=== PATIENT | male | born 1965 | race Caucasian/White ===

== ENCOUNTER 2018-10-09 10:07 | Inpatient (IN) ==
--- NOTE | 2018-10-09 10:43 | PROVIDER DOCUMENTATION ---
HPI-Musculoskeletal Pain/Inj - GENERAL Chief Complaint: Fall Stated Complaint: FALL/HIP INJ Time Seen by Provider: 10/09/18 10:31 Source: patient, family - HX OF PRESENT ILLNESS-MUSKULOSKELTAL Nature of Presenting Problem: 53yom present to ER with c/o left hip, bilateral wrist, and head pain. Pt reports he was in the backseat floorboard of a van when he fell out of it landing on the left hip and bilateral wrist. Reports hitting head but denies LOC. Pt A&Ox3. Female visitor at bedside. Quality of Pain: reports: aching, throbbing Onset/Duration: just prior to arrival Modifying Factors: improves with: rest. worse with: movement, palpation - FALL INJURY Location of Pain/Injury: reports: head, other (left hip, bilateral wrist) Pain Radiation: reports: no radiation Symptoms prior to fall:: reports: none Loss of Consciousness: no loss of consciousness Injury Associated Symptoms: reports: headaches, trouble walking. denies: chest pain, dizziness, nausea, shortness of breath, sensory/motor loss, vomiting, weakness - HIP/PELVIS PAIN/INJURY Hip Pain Location: reports: hip (L) Pain Radiation: reports: no radiation Context / Method of Injury: reports: fall Associated Symptoms: reports: denies symptoms Review of Systems - Adult - REVIEW OF SYSTEMS - ADULT Constitutional: reports: no symptoms reported Eyes: reports: no symptoms reported Ears, Nose, Mouth & Throat: reports: no symptoms reported Cardiovascular: reports: no symptoms reported. denies: chest pain, orthopnea, palpitations, syncope Respiratory: reports: no symptoms reported. denies: shortness of breath, wheezing Gastrointestinal: reports: no symptoms reported Genitourinary: reports: no symptoms reported Musculoskeletal: reports: see HPI, other (left hip, bilateral wrist) Integumentary: reports: no symptoms reported Neurological: reports: no symptoms reported Psychiatric: reports: no symptoms reported Endocrine: reports: no symptoms reported Hematologic/Lymphatic: reports: no symptoms reported Allergic/Immunologic: reports: no symptoms reported All Other Systems: Reviewed and Negative Past History - Adult - PAST MEDICAL HISTORY-ADULT Review of Records: reports: Old Records Reviewed, Nursing Assessment Review, Medications Reviewed Major Childhood Illnesses: reports: denies history Cardiovascular: reports: denies history Respiratory: reports: COPD Gastrointestinal: reports: denies history Obstetrical/Gynecological: reports: denies history Genitourinary: reports: denies history Musculoskeletal: reports: denies history Neurological: reports: denies history Endocrine/Immune: reports: denies history Other Conditions: reports: denies history - PRIOR SURGERIES/PROCEDURES Surgical/Procedure History: reports: hernia repair - IMMUNIZATION STATUS Childhood Immunizations: See Nurse Assessment Flu Vaccine: See Nurse Assessment - FAMILY HISTORY Family History: reviewed, not pertinent Physical Exam-Injury Related - Physical Exam-Injury Related Initial Vital Signs Reviewed: Yes General Appearance: appears well, alert, no apparent distress Eyes: pink conjunctivae Head, Ears, Nose, Mouth & Throat: moist mucous membranes Neck: full range of motion, supple, normal inspection. negative: C-spine tenderness, subcutaneous emphysema, trachial deviation, vertebral point tenderness Respiratory: chest non-tender, lungs clear, normal breath sounds, no pleuratic chest pain, no respiratory distress, no accessory muscle use Cardiovascular: regular rate, rhythm Peripheral Pulses: dorsalis-pedis (R): 2+, dorsalis-pedis (L): 2+ Abdominal Exam: normal bowel sounds, non tender, soft Extremity: no pedal edema, no calf tenderness, normal capillary refill, swelling (left hip), tenderness (left hip, bilateral wrist, small abrasion to right wrist). negative: normal gait, deformity, erythema, pulse deficit, slow capillary refill Integumentary: normal color, warm/dry Neurologic: grossly normal Psych/Mental Status: oriented x 3 - Glascow Coma Score Best Eye Response (Bartlett): (4) open spontaneously Best Verbal Response (Bartlett): (5) oriented Best Motor Response (Bartlett): (6) obeys commands Progress - PLAN OF CARE/RESULTS Progress/Plan/Lab Results: Vital Signs - 8 hr 10/09/18 10:16 Temperature 97.5 F L Pulse Rate 62 Respiratory Rate 18 Blood Pressure 109/63 Orders Category Date Time Status CT HEAD/C-SPINE W/O CONTRAST [CT] Stat Exams 10/09/18 10:[address] PELVIS W/O CONTRAST [CT] Stat Exams 10/09/18 11:41 Completed HAND COMPLETE LEFT [RAD] Stat Exams 10/09/18 10:35 Completed HAND COMPLETE RIGHT [RAD] Stat Exams 10/09/18 10:35 Completed Hydrocodone/APAP 7.5 mg/325 mg [[place]-7.5] Med 10/09/18 11:33 Discontinued 1 each PO NOW ONE - REASSESSMENT Reassessment #1 Time Reassessed: 12:51 (Pt lying in bed. States pain has improved. Explained results and plan to call orthopedic) - XRAY 1 XRAY: Right XRAY Study: Hand (No acute abnormality identified) 2 XRAY: Left XRAY Study: Hand (No acute abnormality identified) - CT/MRI 1 CT Study: Cervical Spine, Head Impression: Normal, See EMR Report (The ventricles and sulci are normal in size and contour. No intracranial mass or hemorrhage. The skull is intact. The sinuses, mastoids, and middle ears are clear. Cervical spine: Alignment is anatomic. Vertebral body heights and intervertebral disc spaces are preserved. Neural foramen are patent. Soft tissues are clear. IMPRESSION: Negative exam. This exam was performed using automated exposure control, adjustment of mA or kV according to patient size, and/or use of iterative reconstruction technique Electronically signed by Stefano Padilla 10/09/2018 12:23 PM) 2 CT Study: Pelvis Impression: Abnormal (There is nondisplaced subcapital left hip fracture at the femoral neck. No dislocations. Soft tissues are clear. No other fractures. IMPRESSION: Acute nondisplaced subcapital left hip fracture. This exam was performed using automated exposure control, adjustment of mA or kV according to patient size, and/or use of iterative reconstruction technique Electronically signed by Stefano Padilla 10/09/2018 12:34 PM) - CONSULTS/PCP/HOSPITALIST Notification #1 *Consult/PCP/Hospitalist*: [facility] Time Discussed: 13:13 (Hip fx) Reason/Comments: admit to hospitalist, NPO after midnight Consult Disposition: Admit #2 Consult: Dr Rosado Time Discussed: 13:21 (Dr Rosado in ER, discussed pt) Consult Disposition: Admit Departure - Departure Date of Disposition Decision: 10/09/18 Time of Disposition Decision: 13:18 DIAGNOSIS: Hip fracture Qualifiers: Encounter type: initial encounter Fracture type: closed Laterality: left Qualified Code(s): S72.002A - Fracture of unspecified part of neck of left femur , initial encounter for closed fracture Disposition: [place] [id number] Certified Medical Emergency: Emergent Condition: Fair Referrals and Follow-Ups: None,PCP [Primary Care Provider] - - Critical Care Note This patient required my direct & personal management of CC.: No Attestation - Physician/ MAUREEN Attestation Patient care was provided by Advanced Practice Provider:: Yes Advanced Practice Provider:: Alexa Erickson Advanced Practice Provider documentation review:: The Mid-level provider documentation, treatment plan and medical decision making was reviewed by the physician who agrees with all treatment and medical decision making by the MLP. The physician spent face to face time with patient:: No Advanced Practice Provider documentation review:: Supervising physician onsite and consulted in the evaluation and care of this patient. The physician did not have a face to face encounter with the patient.
[2018-10-09] MEDS ORDERED: NORCO-7.5 PO ONE (11:33)
--- NOTE | 2018-10-09 12:26 | Diag Imaging Result Doc PS360 ---
CT HEAD/C-SPINE W/O CONTRAST - 10/09/2018 INDICATION: fall, hit head COMPARISON: None FINDINGS: Head CT: The ventricles and sulci are normal in size and contour. No intracranial mass or hemorrhage. The skull is intact. The sinuses, mastoids, and middle ears are clear. Cervical spine: Alignment is anatomic. Vertebral body heights and intervertebral disc spaces are preserved. Neural foramen are patent. Soft tissues are clear. IMPRESSION: Negative exam. This exam was performed using automated exposure control, adjustment of mA or kV according to patient size, and/or use of iterative reconstruction technique Electronically signed by Stefano Padilla 10/09/2018 12:23 PM
--- NOTE | 2018-10-09 12:36 | Diag Imaging Result Doc PS360 ---
CT PELVIS W/O CONTRAST - 10/09/2018 INDICATION: fall injury COMPARISON: None FINDINGS: There is nondisplaced subcapital left hip fracture at the femoral neck. No dislocations. Soft tissues are clear. No other fractures. IMPRESSION: Acute nondisplaced subcapital left hip fracture. This exam was performed using automated exposure control, adjustment of mA or kV according to patient size, and/or use of iterative reconstruction technique Electronically signed by Stefano Padilla 10/09/2018 12:34 PM
--- NOTE | 2018-10-09 13:21 | Diag Imaging Result Doc PS360 ---
HAND COMPLETE LEFT - 10/09/2018 INDICATION: bilateral wrist pain TECHNIQUE: Three views COMPARISON: None FINDINGS: Bones are intact and normally aligned. Joint spaces and soft tissues are clear. IMPRESSION: Negative exam. Electronically signed by Stefano Padilla 10/09/2018 1:19 PM
--- NOTE | 2018-10-09 13:22 | Diag Imaging Result Doc PS360 ---
HAND COMPLETE RIGHT - 10/09/2018 INDICATION: bilateral wrist pain TECHNIQUE: Three views COMPARISON: None FINDINGS: Bones are intact and normally aligned. Joint spaces and soft tissues are clear. IMPRESSION: Negative exam. Electronically signed by Stefano Padilla 10/09/2018 1:19 PM
[2018-10-09] MEDS ORDERED: DILAUDID IV PRN (13:46)
[2018-10-09] MEDS: LOVENOX SUBQ SCH (14:00)
[2018-10-09 15:13] LABS: INR 1.04; PROTIME 14.1 Seconds (11.0-16.0)
[2018-10-09 15:18] LABS: AGAP 12; ALBUMIN 3.5 g/dL (3.5-5.0); ALKALINE PHOSPHATASE 77 U/L (32-122); BUN 4 mg/dL (8-22); CALCIUM 8.8 mg/dL (8.8-10.2); CHLORIDE 104 mmol/L (98-107); COSMO 276; CREATININE 0.6 mg/dL (0.7-1.2); ESTIMATED GFR > 60; GLUCOSE 132 mg/dL (70-104); GOT 15 U/L (10-34); GPT 12 U/L (10-44); POTASSIUM 3.5 mmol/L (3.5-5.1); SODIUM 139 mmol/L (136-145); TCO2 23 mmol/L (25-35); TOTAL PROTEIN 6.4 g/dL (6.3-8.3)
[2018-10-09 15:21] LABS: BASO# 0.02 X1000 (0.0-0.2); BASO% 0.1 % (0.0-0.8); EOS# 0.02 X1000 (0.0-0.7); EOS% 0.1 % (0.0-10.0); HEMATOCRIT 40.5 % (42.0-52.0); HEMOGLOBIN 13.8 g/dL (14.0-18.0); IMM GRAN# 0.05 X1000 (0.0-0.04); IMM GRAN% 0.2 % (0.0-0.5); LYMPH# 1.64 X1000 (1.2-3.4); LYMPH% 7.4 % (20.5-51.1); MCH 30.1 PG (27-31); MCHC 34.1 g/dL (33-37); MCV 88.2 FL (81-99); MONO# 1.02 X1000 (0.11-0.59); MONO% 4.6 % (1.7-9.3); MPV 9.3 FL (7.4-10.4); NEUT# 19.38 X1000 (1.4-6.5); NEUT% 87.6 % (42.2-75.2); PLT 372 X1000 (130-400); RBC 4.59 XMIL (4.7-6.1); RDW 13.6 % (11.5-14.5); WBC 22.13 X1000 (4.8-10.8)
[2018-10-09 15:39] LABS: LYMPHS 6 % (21-51); MONO 5 % (1-9); SEGS 89 % (42-75)
[2018-10-09 15:40] LABS: ANISOCYTOSIS 1+
[2018-10-09] MEDS ORDERED: MORPHINE IV ONE (15:52)
--- NOTE | 2018-10-09 16:35 | HISTORY AND PHYSICAL ---
CHIEF COMPLAINT: Fall and hip pain. HISTORY OF PRESENT ILLNESS: Patient is a 53-year-old male, who is very pleasant to talk with. States that he "was standing on a vehicle and was attempting to tie down some pipe.' States when he reached up and grabbed the strap, it broke. He fell, landing on his left hip and bilateral hands and wrists. Notes that he has pain on his bilateral hands and wrists, as well as his left hip. Denies hitting his head. Denies any loss of consciousness. REVIEW OF SYSTEMS: Patient denies any chest pain, palpitations. Denies any focalized numbness, tingling, weakness in his extremities. Denies any dysuria, urinary frequency. Denies constipation, melena, hematochezia. Denies prior pain in his hip. PAST MEDICAL HISTORY: Significant only for COPD and a hernia repair some years ago. MEDICATIONS: None. ALLERGIES: None. FAMILY HISTORY: Noncontributory. PHYSICAL EXAMINATION: VITAL SIGNS: Temperature 97.5, pulse 62, respiratory 18, BP 109/63. GENERAL: Patient is awake, alert, currently he is in no respiratory distress. He is very pleasant to talk with, although he is in obvious pain secondary to his hip. HEENT: Normocephalic. NECK: Supple. CV: Regular rate. No murmurs. CHEST: Clear, nonlabored. No wheezing. No coughing. Normal breath sounds. ABDOMEN: Soft, nondistended, nontender. EXTREMITIES: Good pulses bilaterally. He moves upper extremities well. His right extremity is flexed. His left extremity is noted to have swelling over the hip and tenderness. He does not move voluntarily. He is able to move his foot, although painful. NEUROLOGIC: He is awake, alert, oriented x3. LABS: CBC CMP pending. X-RAYS: CT of the hip demonstrates an acute nondisplaced subcapital left hip fracture. ASSESSMENT: 1. Acute nondisplaced subcapital left hip fracture secondary to fall. 2. Chronic obstructive pulmonary disease. 3. Acute pain and pain control. PLAN: We will admit patient to the hospital. Add Dilaudid for acute pain control. Continue IV fluids. We will place on Lovenox overnight, as he will be immobile. We will allow to eat and make n.p.o. after midnight. Surgery will see,and evaluate and determine the best course for his hip repair. cc: Win Gillespie MD
--- NOTE | 2018-10-09 17:01 | Diag Imaging Result Doc PS360 ---
PELVIS - 10/09/2018 INDICATION: Hip fracture TECHNIQUE: COMPARISON: None FINDINGS: There is a nondisplaced subcapital left femoral neck fracture. IMPRESSION: Nondisplaced subcapital left hip fracture. Electronically signed by Stefano Padilla 10/09/2018 4:58 PM
[2018-10-09] MEDS ORDERED: PREVNAR 13 IM ONE (17:06)
[2018-10-09] MEDS ORDERED: PNEUMOVAX 23 IM ONE (17:15)
--- NOTE | 2018-10-09 17:22 | CONSULTATION ---
DATE OF CONSULTATION: 10/09/2018 CHIEF COMPLAINT: Left hip pain. HISTORY OF PRESENT ILLNESS: Mr. Kerr 53-year-old male who unfortunately was trying to tie down some pipe on his van and fell and landed on his hip and a lot of hip pain, could not bear weight. Came to the ER, they diagnosed with a hip fracture and he was admitted under Dr. Gillespie. Most of his pain is in the left hip and radiates down to the knee, is worse with any movement. PAST MEDICAL HISTORY: COPD, hernia repair. PAST SURGICAL HISTORY: Hernia repair. MEDICATIONS: None. ALLERGIES: No known drug allergies. FAMILY HISTORY: Noncontributory. SOCIAL HISTORY: He does smoke. REVIEW OF SYSTEMS: Positive for this left hip pain. All other systems are essentially negative. PHYSICAL EXAMINATION: General: Well-developed, well-nourished male. He is in mild distress. Head and Neck: Normocephalic, atraumatic. Respirations: Nonlabored breathing. Cardiovascular: Regular rate. Abdomen: Is not distended. Extremities: Left lower extremity exam, he has tenderness to palpation at the hip. He has good dorsiflexion, plantar flexion of the ankle and toes, good sensation to light touch to the toes. No tenderness to palpation to the right lower extremity or bilateral upper extremities. IMAGING: CT shows a nondisplaced subcapital femoral neck fracture. ASSESSMENT: Left nondisplaced hip fracture. PLAN: I discussed with Mr. Kerr and his about the hip and order just a plain film x-ray of his pelvis and if everything still nondisplaced then discussed with him about performing left closed reduction, percutaneous pinning the left hip. We will plan on doing that in the morning. He will be n.p.o. after midnight tonight. I went over with him the procedure, risks, benefits, potential complications. Risks include but are not limited to infection, wound healing problems, damage to nerves, arteries, veins, numbness, malunion, nonunion, hardware related issues, continued pain, DVT, and anesthesia related risks. After discussing these with the patient, he expressed understanding wished to proceed. Like I said, we will plan on getting this done tomorrow. cc: Clive George MD
[2018-10-09] MEDS: OXY IR PO PRN (17:30)
[2018-10-09] MEDS ORDERED: SODIUM CHLORIDE 0.9% INJ SCH (18:45)
[2018-10-09] MEDS: DILAUDID IV PRN (19:21)
--- NOTE | 2018-10-09 19:40 | Diag Imaging Result Doc PS360 ---
CHEST-PORTABLE - 10/09/2018 INDICATION: dyspnea COMPARISON: 01/16/2016 FINDINGS: Lungs are hyperexpanded compatible with COPD. No focal infiltrates, pneumothorax, or pleural effusion. Heart size is normal. IMPRESSION: COPD. Electronically signed by Stefano Padilla 10/09/2018 7:38 PM
[2018-10-09] MEDS: ZOFRAN IV PRN (20:20)
[2018-10-09] MEDS: NS 1,000 ML IV SCH (20:20)
[2018-10-09] MEDS: NICODERM PATCH TD SCH (20:21)
[2018-10-10] MEDS: ZOFRAN IV PRN ×2 (00:47→04:38)
[2018-10-10] MEDS: DILAUDID IV PRN ×3 (00:47→08:39)
[2018-10-10 01:08] LABS: URINE SOURCE CLEAN CATCH
[2018-10-10 01:11] LABS: BILIRUBIN URINE NEGATIVE (NEGATIVE); BLOOD URINE NEGATIVE (NEGATIVE); COLOR YELLOW; GLUCOSE URINE NEGATIVE (NEGATIVE); KETONE URINE 60 mg/dL (NEGATIVE); LEUKOCYTES URINE NEGATIVE (NEGATIVE); NITRITE URINE NEGATIVE (NEGATIVE); PROTEIN URINE 30 mg/dL (NEGATIVE); SP GRAVITY URINE 1.023; TURBIDITY URINE HAZY (CLEAR); UROBILINOGEN URINE NORMAL (NORMAL)
[2018-10-10 01:22] LABS: UR EPITHELIAL CELLS <10 /HPF (<10); URINE BACTERIA NEGATIVE /HPF; URINE RBC <10 /HPF (<10); URINE WBC <10 /HPF (<10)
[2018-10-10 01:29] LABS: URINE CASTS NONE SEEN; URINE CRYSTALS CA OXALATE PRESENT; URINE YEAST NONE SEEN
[2018-10-10 06:28] LABS: HEMATOCRIT 37.3 % (42.0-52.0); HEMOGLOBIN 12.8 g/dL (14.0-18.0); MCH 30.6 PG (27-31); MCHC 34.3 g/dL (33-37); MCV 89.2 FL (81-99); MPV 9.6 FL (7.4-10.4); RBC 4.18 XMIL (4.7-6.1); RDW 13.5 % (11.5-14.5); WBC 15.84 X1000 (4.8-10.8)
[2018-10-10] MEDS: PROTONIX IV SCH (06:33)
[2018-10-10 06:44] LABS: AGAP 13; ALB/GLOB RATIO 1.5; ALBUMIN 3.6 g/dL (3.5-5.0); ALKALINE PHOSPHATASE 71 U/L (32-122); BUN 6 mg/dL (8-22); CALCIUM 8.5 mg/dL (8.8-10.2); CHLORIDE 103 mmol/L (98-107); COSMO 278; CREATININE 0.6 mg/dL (0.7-1.2); ESTIMATED GFR > 60; GLUCOSE 123 mg/dL (70-104); GOT 13 U/L (10-34); GPT 11 U/L (10-44); MAGNESIUM 1.3 mg/dL (1.5-2.7); POTASSIUM 3.4 mmol/L (3.5-5.1); SODIUM 140 mmol/L (136-145); TCO2 24 mmol/L (25-35); TOTAL BILIRUBIN 1.02 mg/dL (0.20-1.00)
[2018-10-10 06:46] LABS: URINE SOURCE CATH
[2018-10-10 06:48] LABS: BILIRUBIN URINE NEGATIVE (NEGATIVE); BLOOD URINE NEGATIVE (NEGATIVE); COLOR YELLOW; GLUCOSE URINE NEGATIVE (NEGATIVE); KETONE URINE 60 mg/dL (NEGATIVE); LEUKOCYTES URINE NEGATIVE (NEGATIVE); NITRITE URINE NEGATIVE (NEGATIVE); PROTEIN URINE TRACE mg/dL (NEGATIVE); SP GRAVITY URINE 1.019; TURBIDITY URINE CLEAR (CLEAR); UROBILINOGEN URINE NORMAL (NORMAL)
[2018-10-10 06:49] LABS: URINE BACTERIA NEGATIVE /HPF; URINE RBC <10 /HPF (<10); URINE WBC <10 /HPF (<10)
[2018-10-10 06:56] LABS: UR EPITHELIAL CELLS <10 /HPF (<10)
[2018-10-10] MEDS ORDERED: KEFZOL 2 GM/D5W 2 GM/50 ML IVPB IV ONE (08:03)
--- NOTE | 2018-10-10 08:06 | PROGRESS NOTE ---
DATE: 10/10/2018 SUBJECTIVE: Mr. Kerr is lying in bed this morning. Still in pain from his left hip. He said he had a pretty rough night overall. OBJECTIVE: On left lower extremity exam, he still has tenderness to palpation of the left hip. Left hip was marked out as the correct surgical site. He is still neurovascularly intact to the left lower extremity. ASSESSMENT: Left nondisplaced femoral neck fracture. PLAN: Will plan on closed reduction percutaneous pinning of the left hip today. Mr. Kerr is n.p.o. now. Will plan on getting this done today. cc: Clive George MD
[2018-10-10] MEDS: NS 1,000 ML IV SCH (08:27)
[2018-10-10] MEDS ORDERED: MAGNESIUM SULFATE 2 GM/S.W.I. 2 GM/50 ML IVPB IV ONE (09:02)
[2018-10-10] MEDS ORDERED: XYLOCAINE-MPF 2% ONE (09:08)
[2018-10-10] MEDS ORDERED: ROBINUL ONE (09:08)
[2018-10-10] MEDS ORDERED: FENTANYL ONE (09:09)
[2018-10-10] MEDS ORDERED: DIPRIVAN 1% ONE (09:17)
[2018-10-10] MEDS ORDERED: KEFZOL 1 GM/D5W 1 GM/50 ML IVPB ONE (10:15)
[2018-10-10] MEDS ORDERED: ZOFRAN ONE (11:18)
[2018-10-10] MEDS ORDERED: DEMEROL ONE (11:22)
[2018-10-10] MEDS ORDERED: OFIRMEV 1000 MG/ISOTONIC SOLN 1,000 MG/100 ML BOTTLE ONE (11:24)
[2018-10-10] MEDS ORDERED: SALINE LOCK IV FLUID XX ONE (11:40)
[2018-10-10] MEDS: MORPHINE ONE ×3 (12:19→12:28)
[2018-10-10] MEDS: PHENERGAN ONE ×3 (12:25→12:45)
[2018-10-10] MEDS: DILAUDID ONE ×2 (12:35→12:39)
[2018-10-10] MEDS: LOVENOX SUBQ SCH (13:48)
--- NOTE | 2018-10-10 13:51 | OPERATIVE NOTE ---
PROCEDURE DATE: 10/10/2018 PREOPERATIVE DIAGNOSIS: Left femoral neck fracture nondisplaced. POSTOP DIAGNOSIS: Left femoral neck fracture nondisplaced. PROCEDURE: Left closed reduction, percutaneous pinning hip. SURGEON: Dr. Clive George. ELECTRONEURODIAGNOSTIC TECHNOLOGIST: None. ANESTHESIA: General with LMA. BLOOD LOSS: 50 mL. IMPLANTS: Synthes 7.3 mm cannulated screws x3. DISPOSITION: To PACU, hemodynamically stable. INDICATION FOR PROCEDURE: Mr. Kerr is a 53-year-old male who fell and broke his hip yesterday. He was admitted, made n.p.o. after midnight. We discussed with him about surgical intervention and they expressed understanding and wished to proceed. DESCRIPTION OF PROCEDURE: Mr. Kerr was identified in the preoperative holding area. The left hip was marked as correct surgical site. He was then wheeled to the operating room, placed supine on the operating table. All bony prominences well padded. He was induced under general anesthesia. LMA was placed. He was placed on the traction bed. Fluoroscopic imaging was used throughout the case as well. Left lower extremity was then prepped with chlorhexidine, gluconate scrub and then ChloraPrep and draped in normal sterile fashion. Surgical pause was performed. We identified the correct patient, correct side, and the correct procedure. Preop antibiotics were given. AP and lateral views were obtained. The lateral view actually looked great. The AP view, you could see there was just a little bit of gap and so I took off some of the traction and that actually closed down the calcar really well and then performed our closed reduction. I then got my guide wires in position. We did inverted triangle and felt we had good position of all the guidewires AP and lateral views. I then drilled and placed our screws in. Actually had good purchase on all the screws especially that inferior screw and that actually helped closed that little bit of a fracture line down at the calcar. All the guidewires were then removed. AP and lateral view showed we had good position of the fracture, good reduction and good position of all our hardware. I then closed everything in a layered fashion, 0 Vicryl for the deep layer, 2-0 Vicryl for the subcutaneous and gómez on the skin. Adaptic, 4 x 4s, island dressing was applied. The patient was then wheeled from general anesthesia, moved to his own bed and taken to PACU in stable condition. Postoperatively, he will be touchdown weightbearing left lower extremity. We will continue to follow. cc: Clive George MD
[2018-10-10] MEDS: POTASSIUM CHLORIDE 20 MEQ/SWI 20 MEQ/100 ML IVPB IV SCH ×2 (14:43→18:02)
[2018-10-10] MEDS: MORPHINE IV PRN ×2 (18:03→20:07)
--- NOTE | 2018-10-10 18:17 | PROGRESS NOTE ---
DATE: 10/10/2018 SUBJECTIVE: The patient is resting comfortably in bed no acute events. OBJECTIVE: Vital signs: Temperature 98.6 degrees, blood pressure 118/53, heart rate 60, respirations 18, O2 saturation 95% on room air. General: This is a elderly male lying in bed in no acute distress. Heart: S1, S2 normal, regular rate and rhythm. Lungs: Clear to auscultation bilaterally. Abdomen: Positive bowel sounds. Soft, nontender, nondistended. Extremities: No edema, no cyanosis. Neuro: The patient is alert and oriented x3. LABS: Sodium 140, potassium 3.4, chloride 103, CO2 24, BUN 6, creatinine 0.6, glucose 123, magnesium 1.3, calcium 8.5, total bilirubin 1, white blood cell count 15, hemoglobin 12, hematocrit 37, platelets 341,000. ASSESSMENT AND PLAN: 1. Status post closed reduction of the left femoral neck fracture. Management as per Orthopedic Surgery. 2. Leukocytosis. No obvious source of infection has been found, will continue to monitor the white count closely. 3. Tobacco dependence. Continue with the NicoDerm patch. 4. Gastrointestinal prophylaxis. Continue on Protonix. 5. Deep vein thrombosis prophylaxis. Continue on Lovenox. cc: Lizzie Calix MD
[2018-10-10] MEDS: KEFZOL 1 GM/D5W 1 GM/50 ML IVPB IV SCH (19:39)
[2018-10-10] MEDS: NICODERM PATCH TD SCH (20:07)
[2018-10-10] MEDS: COLACE PO SCH (20:08)
[2018-10-10] MEDS: PERIDEX MT SCH (20:08)
[2018-10-11] MEDS: MORPHINE IV PRN ×5 (01:11→14:45)
[2018-10-11] MEDS: KEFZOL 1 GM/D5W 1 GM/50 ML IVPB IV SCH ×2 (03:26→11:07)
[2018-10-11] MEDS: PROTONIX IV SCH (06:01)
[2018-10-11 06:20] LABS: HEMATOCRIT 36.3 % (42.0-52.0); HEMOGLOBIN 12.4 g/dL (14.0-18.0); MCH 30.8 PG (27-31); MCHC 34.2 g/dL (33-37); MCV 90.1 FL (81-99); MPV 9.6 FL (7.4-10.4); RBC 4.03 XMIL (4.7-6.1); RDW 13.5 % (11.5-14.5); WBC 13.78 X1000 (4.8-10.8)
[2018-10-11 06:46] LABS: AGAP 12; BUN 3 mg/dL (8-22); CALCIUM 8.4 mg/dL (8.8-10.2); CHLORIDE 102 mmol/L (98-107); COSMO 269; CREATININE 0.5 mg/dL (0.7-1.2); ESTIMATED GFR > 60; GLUCOSE 107 mg/dL (70-104); POTASSIUM 3.9 mmol/L (3.5-5.1); SODIUM 136 mmol/L (136-145); TCO2 22 mmol/L (25-35)
--- NOTE | 2018-10-11 06:57 | PROGRESS NOTE ---
DATE: 10/11/2018 SUBJECTIVE: Mr. Kerr is feeling a lot better this morning then was yesterday before surgery. He feels like his pain is better. OBJECTIVE: On left lower extremity exam, the dressing is clean, dry, and intact. He remains neurovascularly intact to the left lower extremity. ASSESSMENT: Status post left closed reduction and percutaneous pinning of hip fracture. PLAN: Mr. Kerr is doing well. He is touchdown weightbearing to the left lower extremity. He will start working with physical therapy today and tax services specialist will help with discharge planning. cc: Clive George MD
--- NOTE | 2018-10-11 07:16 | EKG Report ---
Test Performed on : 10/09/2018 8:12:06 PM Test Reason : preop Blood Pressure : / mmHG Vent. Rate : 058 BPM Atrial Rate : 058 BPM P-R Int : 136 ms QRS Dur : 080 ms QT Int : 438 ms P-R-T Axes : 074 085 035 degrees QTc Int : 429 ms Sinus bradycardia. Nonspecific ST abnormality Abnormal ECG No previous ECGs available Baseline sway limits ST segment review. Confirmed by Mauricio PARDO, Jorge Polk ([id number]) on 10/11/2018 8:46:35 AM
[2018-10-11] MEDS: OXY IR PO PRN ×3 (09:24→20:47)
[2018-10-11] MEDS: FERROUS SULFATE PO SCH (09:24)
[2018-10-11] MEDS: PERIDEX MT SCH ×2 (09:24→20:47)
[2018-10-11] MEDS: LOVENOX SUBQ SCH (14:45)
--- NOTE | 2018-10-11 15:44 | Diag Imaging Result Doc PS360 ---
EXAM: HIP 1 VIEW LEFT INDICATION: pain TECHNIQUE: One view COMPARISON: 10/09/2018 FINDINGS: There has been interval ORIF for the known fracture at the left femoral neck. The fracture is aligned in anatomic position. Three lag screws are now in place. No other fracture is identified. The hip joint spaces preserved. There are a few skin gómez at the lateral aspect hip. IMPRESSION: Postsurgical changes related to recent interval ORIF. Essentially unremarkable, otherwise. Electronically signed by Chucky Theodore 10/11/2018 3:42 PM
--- NOTE | 2018-10-11 17:07 | PROGRESS NOTE ---
DATE: 10/11/2018 SUBJECTIVE: The patient is resting comfortably in bed. No acute events noted overnight. OBJECTIVE: Vital Signs: Temperature, 99.5, blood pressure 122/75, heart rate 65, respirations 16, O2 saturation 96% on room air. General: This is an elderly male lying in bed in no acute distress. Heart: S1, S2 normal. Regular rate and rhythm. Lungs: Clear to auscultation bilaterally. Abdomen: Positive bowel sounds. Soft, nontender, nondistended. Extremities: No edema. No cyanosis. Neurologic: The patient is alert and oriented x3. LABORATORY DATA: White blood cell count 13, hemoglobin 12, hematocrit 36, platelets 323,000. Sodium 136, potassium 3.9, chloride 102, CO2 22, BUN 3, creatinine 0.5, glucose 107, calcium 8.4. ASSESSMENT AND PLAN: 1. Status post closed reduction of the left femoral neck fracture. Management as per Orthopedic Surgery. 2. Leukocytosis. Improved. 3. Tobacco dependence. The patient has been counseled about smoking cessation. 4. Gastrointestinal prophylaxis. Continue on Protonix. 5. Deep vein thrombosis prophylaxis. Continue on Lovenox. cc: Lizzie Calix MD
[2018-10-11] MEDS: NICODERM PATCH TD SCH (20:46)
[2018-10-11] MEDS: COLACE PO SCH (20:47)
[2018-10-12] MEDS: OXY IR PO PRN ×3 (02:42→21:54)
[2018-10-12] MEDS ORDERED: AYR NASAL SPRAY NAS PRN (03:10)
[2018-10-12 05:39] LABS: BASO# 0.02 X1000 (0.0-0.2); BASO% 0.2 % (0.0-0.8); EOS# 0.11 X1000 (0.0-0.7); EOS% 0.9 % (0.0-10.0); HEMATOCRIT 39.6 % (42.0-52.0); HEMOGLOBIN 13.4 g/dL (14.0-18.0); IMM GRAN# 0.02 X1000 (0.0-0.04); IMM GRAN% 0.2 % (0.0-0.5); LYMPH# 1.56 X1000 (1.2-3.4); LYMPH% 12.4 % (20.5-51.1); MCHC 33.8 g/dL (33-37); MCV 88.6 FL (81-99); MONO% 7.1 % (1.7-9.3); MPV 9.2 FL (7.4-10.4); NEUT# 10.02 X1000 (1.4-6.5); NEUT% 79.2 % (42.2-75.2); PLT 345 X1000 (130-400); RBC 4.47 XMIL (4.7-6.1); RDW 13.1 % (11.5-14.5); WBC 12.63 X1000 (4.8-10.8)
[2018-10-12 06:06] LABS: AGAP 10; BUN 4 mg/dL (8-22); CALCIUM 8.4 mg/dL (8.8-10.2); CHLORIDE 98 mmol/L (98-107); COSMO 272; CREATININE 0.6 mg/dL (0.7-1.2); ESTIMATED GFR > 60; GLUCOSE 115 mg/dL (70-104); POTASSIUM 4.1 mmol/L (3.5-5.1); SODIUM 137 mmol/L (136-145); TCO2 29 mmol/L (25-35)
[2018-10-12] MEDS: PROTONIX IV SCH (06:34)
--- NOTE | 2018-10-12 07:20 | PROGRESS NOTE ---
DATE: 10/12/2018 SUBJECTIVE: Mr. Kerr is doing pretty well. He says that physical therapy was a little bit rough yesterday, but he has been trying to move in bed a lot. He says the hip is feeling better. OBJECTIVE: Left lower extremity exam: His dressing is clean, dry, and intact. He is moving the leg really well. He has got good dorsiflexion and plantar flexion of the foot and good sensation to light touch to the foot. ASSESSMENT: Status post left closed reduction percutaneous pinning hip fracture. PLAN: Mr. Kerr is touchdown weightbearing left lower extremity. If he is discharged, I would like to see him in about a week and a half in clinic, and we will get the gómez out at that time and get x-rays. cc: Clive George MD
[2018-10-12] MEDS: FERROUS SULFATE PO SCH (08:29)
[2018-10-12] MEDS: PERIDEX MT SCH ×2 (08:29→21:56)
--- NOTE | 2018-10-12 09:52 | PROGRESS NOTE ---
DATE: 10/12/2018 SUBJECTIVE: Mr. Kerr states he is he is doing well. Anxious to go home. He wants to try and go home with home health. He is off his oxygen, and he has had an injury to his nose when he had the fall. He broke his left hip after he was trying to put some pipe on his van and the bungee cord broke and he fell. OBJECTIVE: Vital signs: Temperature 98.6 degrees, pulse 59, respirations 20, blood pressure 119/72. Eyes: Pupils are equal and round. Lungs: Clear in all lung sadler. Cardiovascular: Regular rate without murmur or S3. Abdomen: Soft. Skin: Warm and dry. Intake/Output: Urine output is 1300 mL. ASSESSMENT AND PLAN: 1. Status post left closed reduction and percutaneous pinning of his hip. He is touchdown weightbearing left lower extremity if he is discharged. I think he wants to go home with physical therapy and home health. 2. Leukocytosis. Improved. 3. Tobacco dependence. He has been counseled on the importance of smoking cessation. 4. Gastrointestinal (GI) prophylaxis. 5. Deep vein thrombosis (DVT) prophylaxis. On Lovenox. 6. Continue physical therapy. 7. Review of his orders. I do not see any change at this point. cc: Prosper Lee MD
[2018-10-12] MEDS: LOVENOX SUBQ SCH (13:58)
[2018-10-12] MEDS: NICODERM PATCH TD SCH (21:55)
[2018-10-12] MEDS: COLACE PO SCH (21:56)
[2018-10-13 05:36] LABS: BASO# 0.02 X1000 (0.0-0.2); BASO% 0.1 % (0.0-0.8); EOS# 0.14 X1000 (0.0-0.7); HEMATOCRIT 38.7 % (42.0-52.0); HEMOGLOBIN 13.3 g/dL (14.0-18.0); IMM GRAN# 0.02 X1000 (0.0-0.04); IMM GRAN% 0.1 % (0.0-0.5); LYMPH# 1.56 X1000 (1.2-3.4); MCH 30.2 PG (27-31); MCHC 34.4 g/dL (33-37); MONO# 0.95 X1000 (0.11-0.59); MONO% 6.7 % (1.7-9.3); MPV 9.7 FL (7.4-10.4); NEUT# 11.49 X1000 (1.4-6.5); NEUT% 81.1 % (42.2-75.2); PLT 357 X1000 (130-400); RDW 12.9 % (11.5-14.5); WBC 14.18 X1000 (4.8-10.8)
[2018-10-13 06:23] LABS: AGAP 12; BUN 6 mg/dL (8-22); CALCIUM 8.3 mg/dL (8.8-10.2); CHLORIDE 98 mmol/L (98-107); COSMO 271; CREATININE 0.6 mg/dL (0.7-1.2); ESTIMATED GFR > 60; GLUCOSE 117 mg/dL (70-104); POTASSIUM 3.7 mmol/L (3.5-5.1); SODIUM 136 mmol/L (136-145); TCO2 26 mmol/L (25-35)
[2018-10-13] MEDS: PROTONIX IV SCH (07:44)
[2018-10-13] MEDS: PERIDEX MT SCH (09:09)
[2018-10-13] MEDS: FERROUS SULFATE PO SCH (09:09)
--- NOTE | 2018-10-13 10:14 | PROGRESS NOTE ---
DATE: 10/13/2018 SUBJECTIVE: Mr. Kerr is not able to bear weight on his hip. He is a self-pay. He will not be able to go to rehab and will not get home health. His does live at home, but he will need quite a bit of assistance to get outpatient rehab. So we are going to see how he does today. He is breathing comfortably. He is eating well. OBJECTIVE: Vital signs: Temp 98.6 degrees, pulse 77, respirations 20, blood pressure 117/70. Pupils: Are equal and round. Lungs: Clear in all lung sadler. Cardiovascular: Regular rate without murmur or S3. Abdomen: Soft. Skin: Warm and dry. Urine output: 3000 mL. LAB FROM YESTERDAY: White count was 14,180, hematocrit is 38, platelet count 357,000. Sodium 136, potassium 3.7, chloride 98, BUN 6, creatinine 0.6. ASSESSMENT AND PLAN: 1. Status post left closed reduction and percutaneous pinning of the hip. He is touchdown weightbearing left lower extremity. I want to talk to Dr. George and make sure he is okay with him going home. He will have a difficult time getting to outpatient physical therapy. 2. Leukocytosis, persistent. 3. Tobacco dependence. Counseled on the importance of stopping smoking. 4. Continue gastrointestinal prophylaxis. 5. Continue deep venous thrombosis prophylaxis. The patient is on Lovenox. 6. He is getting some iron 325 mg a day, Colace 200 mg at bedtime, OxyIR 5 mg q.3 hours p.r.n., Protonix 40 mg IV q.24 hours, nicotine patch 21 mg a day. We will change his Protonix to p.o. cc: Prosper Lee MD
--- NOTE | 2018-10-13 10:23 | PROGRESS NOTE ---
DATE: 10/13/2018 SUBJECTIVE DATA: Overall patient is doing very well. He states he has worked with therapy and has done okay with that. He does mention yesterday he had some groin pain while working with a therapist. OBJECTIVE DATA: Left lower extremity exam his incision is clean, dry, and intact. He has good sensation in lower extremity and 2+ pedal pulse. He is able to move that leg very well. ASSESSMENT: Status post left closed reduction, percutaneous pinning of the hip. PLAN: At this point, he can be discharged. It sounds like he is going to be discharged home and have home health come work with him. He will be touchdown weightbearing only. After that, we will need to see him in clinic in about 2 weeks. We will repeat x-rays and get his gómez out at that point. Hopefully, we will be able to transition him to more of the 25 to 50 percent weightbearing status. Dictated by AUDREY Justice for Clive George MD cc: AUDREY Justice MD
--- NOTE | 2018-10-13 10:46 | DISCHARGE SUMMARY ---
ADMISSION DATE: 10/09/2018 DISCHARGE DATE: He had fallen after he was trying to put a pipe on top of his van. The bungee cord broke. He fell and struck his hip and suffered a left hip fracture, and so was admitted to the hospital and had internal fixation done, per Dr. George. This was done on 10/10/2018, left closed reduction and percutaneous hip pinning. Tolerated procedure well. He has no insurance, self-pay. His is at home. Wanted to go home. He will pursue outpatient physical therapy. His hematocrit postop was 38. Preop, it was 40, and he was initially on some anticoagulant here in the hospital. I will let him have some oxycodone for pain, and he will take iron tablet once a day for another 4 weeks. Give him a nicotine patch, and give him some Colace for his bowels. He did get a pneumococcal vaccination, but will set him up to go home. He will get outpatient physical therapy with the help of his and friends. I do not know that he has a primary care physician. We will see if we can advise him to set one up. cc: Prosper Lee MD
[2018-10-13] MEDS: ZOFRAN IV PRN (11:29)
[2018-10-13 12:23] VITALS: BP 126/76
[2018-10-13] MEDS: OXY IR PO PRN (15:15)
[2018-10-14] MEDS ORDERED: PROTONIX PO SCH (07:00)
== END 2018-10-13 15:24 | disposition home or self-care (01) | DRG 482 ==
LOC: P.ED 10:07 → 4N 14:47 → SUATTDRO 14:47
PROVIDERS: ATTEND Emergency Medicine
CPT/HCPCS: 70450; 71010; 71045; 72125; 72170; 72192; 73130; 73500; 73501; 76000; 80048; 80053; 81001; 83735; 85025; 85027; 85610; 86850; 86900; 86901; 87040; 93005; 93010; 94761; 94799; 96374; 97110; 97116; 97162; 97530; 99285; A9270; C9113; J0131; J0690; J1170; J1650; J2175; J2270; J2405; J2550; J3010; J3475; J3480; J7030; S0164